=== PATIENT | male | born 1945 | race Caucasian/White ===

== ENCOUNTER 2025-02-23 11:51 | Observation (INO) ==
[2025-02-23] MEDS: SODIUM CHLORIDE 0.9% 500 ML IV SCH (12:19)
--- NOTE | 2025-02-23 12:33 | XRay Report ---
XR chest 1V portable CLINICAL HISTORY: weakness COMPARISON STUDY: None FINDINGS: Heart size and pulmonary vasculature are normal. No consolidation or pleural effusion. No p neumothorax. IMPRESSION: No acute findings. ACT 112: Negative or not required by law. Electronically signed by: Davion Payne M.D. 02/23/2025 12:31 PM
[2025-02-23 12:40] LABS: Alanine Aminotransferase 13 U/L (7-52); Albumin Globulin Ratio 1.3 (0.9-2); Alkaline Phosphatase 32 U/L (34-104); Anion Gap 8 (3-11); Bilirubin,Total 1.0 mg/dl (0.2-1.0); Blood Urea Nitrogen 36 mg/dl (6-23); Calcium 9.4 mg/dl (8.6-10.3); Carbon Dioxide 30 mmol/L (21-32); Chloride 102 mmol/L (98-107); Globulin 3.0 gm/dl (2.5-4.0); Glucose 119 mg/dl (70-99(Fasting)); Magnesium 2.1 mg/dl (1.7-2.4); Potassium 3.8 mmol/L (3.5-5.1); Sodium 140 mmol/L (136-145); Total Protein 6.8 gm/dl (6.0-8.3)
[2025-02-23] MEDS: SODIUM CHLORIDE 0.9% 500 ML IV ONE (12:40)
[2025-02-23 12:54] LABS: Hematocrit (blood only) 32.9 % (42.0-52.0); Hemoglobin 10.3 g/dl (14.0-18.0); Mean Corpuscular Hemoglobin 20.9 pg (25.0-34.0); Mean Corpuscular Volume 66.7 fL (80.0-100.0); Platelet Count 151 K/uL (130-400); RDW Standard Deviation 38.3 fL (36.4-46.3); Red Blood Count 4.93 M/uL (4.70-6.10); White Blood Count 7.91 K/ul (4.8-10.8)
[2025-02-23 12:55] LABS: Immature Granulocytes # (auto) 0.04 K/uL (0.01-0.20); Immature Granulocytes % (auto) 0.5 %; Microcytosis Present; Ovalocytes 1+; Polychromasia 1+; Target Cells 1+; Thyroid Stimulating Hormone 2.703 uIu/ml (0.300-4.500)
--- NOTE | 2025-02-23 13:04 | Emergency Department Note ---
Impression & Plan Hypotension, Syncope, Dysrhythmia, Anemia ED Provider Note NAME: TK SR AGE: 79 SEX: M : 1945 ARRIVES VIA: Ambulance INFORMANT: [Patient][family] ED PROVIDER(S): [Tai Arana MD] CHIEF COMPLAINT: Syncope HISTORY OF PRESENT ILLNESS: Patient is a 79-year-old male who is visiting from [place]. He is here to watch his granddaughters cross-country race. The patient states he did not have much sleep last night, he did not have much to eat or drink today. He was at the event today and, while standing and watching the end of the race, began to feel dizzy and lightheaded. The patient states that he apparently had a brief syncopal spell as he was helped up by bystanders. He cannot recall having chest pain or dyspnea. He did feel a bit lightheaded though. The patient has no known rhythm issues. He does have a somewhat dilated proximal aorta although, for now, the doctors are just watching. He does take medication for blood pressure and took his typical medications for the day. He is not on any blood thinning agents other than a baby aspirin. PMHx/PSHx/Social Hx: See Below PHYSICAL EXAM: GENERAL: Patient is in no acute distress. HEENT: No acute trauma, normocephalic atraumatic, mucous membranes moist, no nasal congestion. NECK: No stridor, no adenopathy, no meningismus, trachea is midline. LUNGS: Clear to auscultation bilaterally, no wheeze, no rhonchi, breath sounds equal. HEART: Irregular rhythm with a normal rate. No obvious murmur. ABDOMEN: Soft, nontender, no peritonitis. EXTREMITIES: No cyanosis, full range of motion of all the joints without pain or difficulty. NEUROLOGIC: Oriented x 3, no acute motor or sensory deficits, no focal weakness. SKIN: No jaundice, no diaphoresis. DIFFERENTIAL DIAGNOSIS: Dysrhythmia, anemia, electrolyte imbalance, dehydration, [place], among others. EMERGENCY DEPARTMENT PROCEDURES: MEDICAL DECISION MAKING: There is no leukocytosis. The patient is anemic with a hemoglobin of 10, I have no old values to use for comparison. A rectal exam was performed, the stool was heme-negative. There was a normal platelet count. There was an elevation to the creatinine at 1.72, no old values available for comparison. No electrolyte abnormality in need of emergent correction. No concerning liver enzyme elevation. Patient appeared to be in a euthyroid state. Lyme disease testing was negative. ECG showed a sinus rhythm with a first-degree AV block and multiple PACs and PVCs. Cardiac enzyme testing x 1 was not consistent with acute cardiac injury. Chest x-ray did not show pneumonia or CHF. No significant cardiomegaly. Patient did present somewhat hypotensive. He did receive a liter of IV saline with improvement of his blood pressure. The patient is in need of a hospital stay and further monitoring. He has frequent PACs and PVCs and has shown significant pauses on the equipment monitor phototypesetting. Certainly, this may have contributed to his syncopal spell. I did speak with cardiology, there was no finding on monitoring thus far to indicate the need for emergent intervention/pacemaker placement. I did speak with the patient and family, they understand the need for a hospital stay and further monitoring/workup. I did speak with case management, the on-call hospitalist was consulted. Prior/Outside records/notes reviewed: Today's EMS notes describing his presentation and transport to the hospital. ECG per my interpretation: Indication was syncope. The ECG shows a sinus bradycardia with a first-degree AV block and some PVCs. LVH is present. The rate was 58. There was no ST elevation. QTc was 404. Continuous Cardiac Monitoring per my interpretation: An order was placed for continuous cardiac monitoring. The monitor shows a rate of 91 with sinus rhythm with a first-degree AV block and PACs/PVCs.. Imaging/x-ray results per my interpretation: Chest x-ray did not show mediastinal widening, pneumonia or pneumothorax. Chronic Medical/Social conditions affecting care: Advanced age. Care/Management discussed with: Case management, the on-call hospitalist. Cardiology-Dr. Brandon. Level of care consideration(s): After review of the information above and other included data: --I believe the patient requires escalation of care to admission DISPOSITION: Admission Past Med/Surg History Problem List (Updated 02/23/25 @ 14:37 by Tai Arana MD) Anemia (Acute) Dysrhythmia (Acute) Syncope (Acute) Hypotension (Acute) Medical History Hypertension Social History Smoking Status: Current some day smoker Tobacco Type: Cigarettes Preferred Language: Yoruba Feels Safe at Home: Yes Home Meds Home Medications Medication Instructions Recorded Confirmed amlodipine 10 mg tablet 10 mg PO DAILY 02/23/25 02/23/25 aspirin 81 mg tablet,delayed 81 mg PO DAILY 02/23/25 02/23/25 release atorvastatin 20 mg tablet 20 mg PO DAILY 02/23/25 02/23/25 hydrochlorothiazide 12.5 mg tablet 12.5 mg PO DAILY 02/23/25 02/23/25 isosorbide mononitrate 30 mg 30 mg PO DAILY 02/23/25 02/23/25 tablet,extended release 24 hr olmesartan 40 mg tablet 40 mg PO DAILY 02/23/25 02/23/25 Results & Data (ED) Vital Signs Vital Signs - 24 hr 02/23/25 12:04 02/23/25 14:00 Temperature 36.5 C Temperature Source Oral Pulse Rate 91 H Pulse Rate [Finger] 72 Respiratory Rate 18 20 Blood Pressure 94/64 L Blood Pressure [Right Arm] 114/75 Blood Pressure Mean 74 Blood Pressure Mean [Right Arm] 88 Pulse Oximetry 95 97 Oxygen Delivery Method Room Air Room Air Sepsis Recent Fever Within 48 Hours No Sepsis New/Unexplained Change in Mental Status No Sepsis Action Taken by Nursing No Action Required Home Medications Current Medication List: was personally reviewed by me Laboratory Data Attestation: I reviewed the patient's lab results. 02/23/25 12:09 02/23/25 12:09 Lab Results 02/23/25 Range/Units 12:09 WBC 7.91 (4.8-10.8) K/ul RBC 4.93 (4.70-6.10) M/uL Hgb 10.3 L (14.0-18.0) g/dl Hct 32.9 L (42.0-52.0) % MCV 66.7 L (80.0-100.0) fL MCH 20.9 L (25.0-34.0) pg MCHC 31.3 L (32.0-36.0) g/dL RDW Std Deviation 38.3 (36.4-46.3) fL RDW Coeff of Meena 16.4 H (11.5-14.5) % Plt Count 151 (130-400) K/uL Immature Gran % (Auto) 0.5 % Neut % (Auto) 68.6 % Lymph % (Auto) 20.7 % Spencer % (Auto) 8.2 % Eos % (Auto) 1.6 % Baso % (Auto) 0.4 % Neut # (Auto) 5.42 (1.40-6.50) K/uL Lymph # (Auto) 1.64 (1.20-3.40) K/uL Spencer # (Auto) 0.65 H (0.11-0.59) K/uL Eos # (Auto) 0.13 (0.00-0.50) K/uL Baso # (Auto) 0.03 (0.00-0.20) K/uL Immature Gran # (Auto) 0.04 (0.01-0.20) K/uL Polychromasia 1+ Microcytosis Present Target Cells 1+ Ovalocytes 1+ Sodium 140 (136-145) mmol/L Potassium 3.8 (3.5-5.1) mmol/L Chloride 102 (98-107) mmol/L Carbon Dioxide 30 (21-32) mmol/L Anion Gap 8 (3-11) BUN 36 H (6-23) mg/dl Creatinine 1.72 H (0.6-1.4) mg/dl Est Cr Clr Drug Dosing Not Reportable eGFR 40.18 BUN/Creatinine Ratio 20.9 H (10-20) Glucose 119 H (70-99(Fasting)) mg/dl Calcium 9.4 (8.6-10.3) mg/dl Magnesium 2.1 (1.7-2.4) mg/dl Total Bilirubin 1.0 (0.2-1.0) mg/dl AST 18 (13-39) U/L ALT 13 (7-52) U/L Alkaline Phosphatase 32 L (34-104) U/L Troponin I High Sens 9.4 (0-20) pg/ml Total Protein 6.8 (6.0-8.3) gm/dl Albumin 3.8 (3.4-5.0) gm/dl Globulin 3.0 (2.5-4.0) gm/dl Albumin/Globulin Ratio 1.3 (0.9-2) TSH 2.703 (0.300-4.500) uIu/ml Lyme Disease Screen Negative (Negative) Administered Medications Discontinued Medications Sodium Chloride (Nss) 500 mls @ 999 mls/hr IV .Q31M VIELKA Stop: 02/23/25 12:30 Last Infusion: 02/23/25 12:57 Dose: Infused Documented By: Admin: 02/23/25 12:19 Dose: 999 mls/hr Documented By: JASSON Sodium Chloride (Nss) 500 mls @ 999 mls/hr IV .Q31M ONE Stop: 02/23/25 12:50 Last Infusion: 02/23/25 13:20 Dose: Infused Documented By: Admin: 02/23/25 12:40 Dose: 999 mls/hr Documented By: JASSON Imaging Data Radiologist's Impression: Chest X-Ray 02/23/25 11:57 XR chest 1V portable CLINICAL HISTORY: weakness COMPARISON STUDY: None FINDINGS: Heart size and pulmonary vasculature are normal. No consolidation or pleural effusion. No pneumothorax. IMPRESSION: No acute findings. ACT 112: Negative or not required by law. Electronically signed by: Davion Payne M.D. 02/23/2025 12:31 PM Discharge Plan Visit Data Chief Complaint: Syncope (Near Syncope) ED Provider: Tai Arana Discharge Problem: Hypotension, Syncope, Dysrhythmia, Anemia Patient Disposition: Admitted As Inpatient Condition: Fair Forms Stand Alone Forms: [facility] [employer] Prescriptions Prescriptions: No Action atorvastatin 20 mg tablet 20 mg PO DAILY isosorbide mononitrate 30 mg tablet extended release 24 hr 30 mg PO DAILY amlodipine 10 mg tablet 10 mg PO DAILY olmesartan 40 mg tablet 40 mg PO DAILY hydrochlorothiazide 12.5 mg tablet 12.5 mg PO DAILY aspirin [Aspir-81] 81 mg Tablet,Delayed Release (Dr/Ec) 81 mg PO DAILY Referrals Referrals: PCP,NO [Primary Care Provider] - Discharge Problem: Hypotension Qualifiers: Hypotension type: unspecified hypotension type Qualified Code(s): I95.9 - Hypotension, unspecified Syncope Qualifiers: Syncope type: unspecified Qualified Code(s): R55 - Syncope and collapse Dysrhythmia Qualifiers: Arrhythmia type: unspecified cardiac arrhythmia Qualified Code(s): I49.9 - Cardiac arrhythmia, unspecified Anemia Qualifiers: Anemia type: unspecified type Qualified Code(s): D64.9 - Anemia, unspecified
[2025-02-23 14:49] LABS: Appearance Urine Clear (Clear); Bacteria Urine Automated None Seen (None Seen); Cast Urine Automated 0-2 /lpf (0-2); Epithelial Cell Urine Auto 0-2 /hpf (0-2); Glucose Urine UA Negative (Negative); RBC Urine Automated 0-2 /hpf (0-2)
--- NOTE | 2025-02-23 14:55 | History & Physical Report ---
Date of Service February 23, 2025 Assessment & Plan (1) Syncope: (2) Hypotension: (3) Dysrhythmia: (4) Anemia: Plan 79 yrs male presents with a syncope spell with hypotension in EDwith a PMH of HTN, HLD, Aortic aneurysm and is getting admitted for heart monitoring and further evaluation. #Syncope/Hypotension/ MALA: - Possible dehydration and lack of sleep and improper eating leading to the syncope and hypotension with MALA. - Cr- 1.72, BUN-36, because of possible dehydration. - Will stop HCTZ, Olmesartan, isosorbide mononitrate because of hypotension but continue amlodipine - Will consider Echocardiogram if EKG suggests atrial fibrillation to r/o possible structural heart disease, valvular disease. - PMH of aortic aneurysm but clinical presentation suggesting dehydration. - Continue iv maintenance fluid. -Plan for D/c tomorrow. # Dysrthmia: -Ekg findings showing sinus bradycardia with a first-degree AV block and some PVCs. LVH is present. The rate was 58. - No H/o Afib before and never been on anticoagulants before. - Will work up on possible syncope d/t dehydration. -Will monitor his telemetry readings till tomorrow. VTE prophylaxis: Lovenox 40mg sq 24hrly. Admission and Anticipated Discharge Date Admission Date: I personally examined the patient and verified all lala points of history and exam, discussed case, and agree with decision making with Dr Cannon [facility] [place] [facility] today. Got up early this morningdid not really get much of anything to eat or drink, had some co ffee on the way, did take his medicines. Was running around the [place] following her race (incidentally he notes she had a ID)after the race one of his friends had a son running and the boys race later. Around this time he started to feel very dizzy and lightheaded and faint. [place] very hot. Grabbed a hold of something to try to steady himself, and then when outit sounds like he lost consciousness briefly but he is not entirely sure. Woke up, EMS brought him to the ER. Now he feels fine. Vitals noted, in general he is awake and alert pleasant no distress. HEENT normocephalic atraumatic mucous membranes moist. Breathing unlabored no accessory muscle use good effort. Skin without rashes pallor or icterus. Sinus rhythm on the monitor whenever I am in the room with him with rates between about 65 and 75occasional ectopy. EKG to me appears with sinus with first- degree AV blockthe 1 EKG that looks the most bradycardic also has essentially what amounts to atrial bigeminy slowing his overall rate between [place] beats. He also has an EKG with first-degree AV block with a PVC. No ischemic changes. Syncopealmost certainly dehydration and medication effect. Creatinine of 1.7 either reflects an MALA, or in discussion with him it sounds like he might have a degree of CKDuncertain stage. That said, very little to eat, only coffee to drink, running or going around a cross-country course on a reasonably hot day, having taken amlodipine, hydrochlorothiazide, isosorbide, and olmesartan all in that context certainly makes this fit the most with a dehydration meets medication side effect syncope. He looks and feels well. Hydrate through the night. Walk with him in the morningas long as he is doing well, anticipate home tomorrow. Elevated creatinineunclear if this is an MALA or CKD or both. Follow-up creatinine in the morning. With no baseline to compare to, as long as he feels well, if his creatinine is basically the same or better I would anticipate him being able to go home Abnormal EKGI do not think this has anything to do with the cause of his syncope. The bradycardia and ectopy could have been a degree of irritability from the dehydration and it may be a degree of vagalbut overall to me it does not appear that his rates or rhythms had anything to do with his syncopeespecially given that he was not having symptoms when the EKGs were done in the ER. Otherwise as above History of Present Illness Chief Complaint: Brief syncopal spell with dizziness after the episode. Reports feeling better on dizziness but still feels oozy. Primary Care Provider: NO PCP Patient is a 79-year-old male who presented with a syncopal spell after travelling [address] from [place] to watch his granddaughters cross-country race. Patient reports he woke up at 4 in the morning and only ate a apple pie and a coffee and didn't feel very good because of feeling sleepy and hungry, At the stadium he was walking a lot and began to feel dizzy and lightheaded but doesn't remember loss of consciousness. The patient states that he apparently had a brief syncopal spell as he was helped up by other people to stand. Reports feeling dizzy and scorching heat from the sun afterwards. He mentions he has a aortic aneurysm which has recently increased in size but didn't need any intervention done as per report specialist. He had his work up done at last october. He takes his hypertensive medication, statin and aspirin. No H/o abnormal body movement, chest pain, palpitations. Allergies Allergy/AdvReac Type Severity Reaction Status Date / Time No Known Allergies Allergy Unverified 02/23/25 15:00 Home Medications Medication Instructions Recorded Confirmed Type amlodipine 10 mg tablet 10 mg PO DAILY 02/23/25 02/23/25 History aspirin 81 mg tablet,delayed 81 mg PO DAILY 02/23/25 02/23/25 History release atorvastatin 20 mg tablet 20 mg PO QPM 02/23/25 02/23/25 History hydrochlorothiazide 12.5 mg tablet 12.5 mg PO DAILY 02/23/25 02/23/25 History isosorbide mononitrate 30 mg 30 mg PO DAILY 02/23/25 02/23/25 History tablet,extended release 24 hr olmesartan 40 mg tablet 40 mg PO DAILY 02/23/25 02/23/25 History vitamins A,C,Y-hzfw-kjxsrw 2,148 1 tab PO DAILY 02/23/25 02/23/25 History mcg-113 mg-45 mg-17.4 mg tablet (PreserVision AREDS) Past Med/Surg History Problem List (Updated 02/23/25 @ 14:37 by Tai Arana MD) Anemia (Acute) Dysrhythmia (Acute) Syncope (Acute) Hypotension (Acute) Medical History Hypertension Social History Smoking Status: Current some day smoker Tobacco Type: Cigarettes Preferred Language: Bermudian Feels Safe at Home: Yes Review of Systems Review of Systems: As per HPI. Physical Exam Physical Exam: GENERAL: Patient is in no acute distress. HEENT: No acute trauma, normocephalic atraumatic, mucous membranes moist, no nasal congestion. NECK: No stridor, no adenopathy, no meningismus, trachea is midline. LUNGS: Clear to auscultation bilaterally, no wheeze, no rhonchi, breath sounds equal. HEART: Irregular rhythm with a normal rate. No obvious murmur. ABDOMEN: Soft, nontender, no peritonitis. EXTREMITIES: No cyanosis, full range of motion of all the joints without pain or difficulty. NEUROLOGIC: Oriented x 3, no acute motor or sensory deficits, no focal weakness. SKIN: No jaundice, no diaphoresis. Results & Data Results & Data Vital Signs (Past 12 Hours) Vital Signs Temp Pulse Pulse Resp BP BP Pulse Ox 02/23/25 14:00 72 20 114/75 97 02/23/25 12:04 36.5 C 91 H 18 94/64 L 95 O2 Del Method 02/23/25 14:00 Room Air 02/23/25 12:04 Room Air Resident Activity Tracking Resident Involvement: Resident Care Provided Care Provided: Adult Hospital Medicine (1) Syncope Syncope type: unspecified Qualified Code(s): R55 - Syncope and collapse (2) Hypotension Hypotension type: unspecified hypotension type Qualified Code(s): I95.9 - Hypotension, unspecified (3) Dysrhythmia Arrhythmia type: unspecified cardiac arrhythmia Qualified Code(s): I49.9 - Cardiac arrhythmia, unspecified (4) Anemia Anemia type: unspecified type Qualified Code(s): D64.9 - Anemia, unspecified
[2025-02-23] MEDS ORDERED: ACETAMINOPHEN 325 MG TAB PO PRN (16:09)
[2025-02-23] MEDS ORDERED: ALUMINUM/MAGNESIUM SUSP 30 ML UDC PO PRN (16:09)
[2025-02-23] MEDS ORDERED: ONDANSETRON INJ 2 MG/ML 2 ML VIAL IV PRN (16:09)
[2025-02-23] MEDS ORDERED: MELATONIN 3 MG TAB PO PRN (16:09)
[2025-02-23] MEDS ORDERED: MAGNESIUM HYDROXIDE SUSP 30 ML UDC PO PRN (16:09)
[2025-02-23] MEDS: LACTATED RINGER'S 1,000 ML IV SCH (17:08)
--- NOTE | 2025-02-23 17:44 | Billing Data ---
Date of Service February 23, 2025 Coding Level of Care Code 64315 INT INP/OBS CARE
[2025-02-23] MEDS: ENOXAPARIN INJ 40 MG/0.4 ML SYR SQ SCH (18:30)
[2025-02-23] MEDS: ATORVASTATIN 20 MG TAB PO SCH (21:51)
--- NOTE | 2025-02-24 06:20 | Electrocardiogram Report ---
Test Reason : Blood Pressure : */* mmHG Vent. Rate : 58 BPM Atrial Rate : 58 BPM P-R Int : 272 ms QRS Dur : 94 ms QT Int : 412 ms P-R-T Axes : * -13 31 degrees QTcB Int : 404 ms Sinus bradycardia with 1st degree A-V block with occasional Premature ventricular complexes Minimal voltage criteria for LVH, may be normal variant ( R in aVL ) Borderline ECG No previous ECGs available Confirmed by Josue Brandon ([id number]) on 02/24/2025 6:20:27 AM Referred By: REFERRED SELF Confirmed By: Josue Brandon
--- NOTE | 2025-02-24 06:22 | Electrocardiogram Report ---
Test Reason : Blood Pressure : */* mmHG Vent. Rate : 62 BPM Atrial Rate : * BPM P-R Int : * ms QRS Dur : 78 ms QT Int : 414 ms P-R-T Axes : * -14 -31 degrees QTcB Int : 420 ms Sinus rhythm with 1st degree A-V block Premature supraventricular complexes Premature ventricular complexes Abnormal ECG When compared with ECG of 23-Feb-2025 12:00, Premature supraventricular complexes are now Present Confirmed by Josue Brandon ([id number]) on 02/24/2025 6:21:33 AM Referred By: REFERRED SELF Confirmed By: Josue Brandon
--- NOTE | 2025-02-24 06:22 | Electrocardiogram Report ---
Test Reason : Blood Pressure : */* mmHG Vent. Rate : 71 BPM Atrial Rate : * BPM P-R Int : * ms QRS Dur : 78 ms QT Int : 420 ms P-R-T Axes : * -14 -2 degrees QTcB Int : 456 ms Sinus rhythm with 1st degree A-V block with frequent Premature supraventricular complexes When compared with ECG of 23-Feb-2025 12:54, Premature ventricular complexes are no longer Present Confirmed by Josue Brandon ([id number]) on 02/24/2025 6:22:21 AM Referred By: REFERRED SELF Confirmed By: Josue Brandon
[2025-02-24 06:35] LABS: Anion Gap 6 (3-11); Blood Urea Nitrogen 27 mg/dl (6-23); Calcium 8.9 mg/dl (8.6-10.3); Carbon Dioxide 29 mmol/L (21-32); Chloride 107 mmol/L (98-107); Glucose 94 mg/dl (70-99(Fasting)); Potassium 4.0 mmol/L (3.5-5.1); Sodium 142 mmol/L (136-145)
[2025-02-24 06:36] LABS: Hematocrit (blood only) 29.7 % (42.0-52.0); Hemoglobin 9.8 g/dl (14.0-18.0); Mean Corpuscular Hemoglobin 21.9 pg (25.0-34.0); Mean Corpuscular Volume 66.4 fL (80.0-100.0); Platelet Count 138 K/uL (130-400); RDW Standard Deviation 37.6 fL (36.4-46.3); Red Blood Count 4.47 M/uL (4.70-6.10); White Blood Count 7.68 K/ul (4.8-10.8)
[2025-02-24 06:39] LABS: Immature Granulocytes # (auto) 0.03 K/uL (0.01-0.20); Immature Granulocytes % (auto) 0.4 %; Microcytosis Present; Ovalocytes 1+; Polychromasia 1+; Target Cells 1+
[2025-02-24] MEDS: ASPIRIN 81 MG ECTAB PO SCH (08:46)
--- NOTE | 2025-02-24 09:27 | Communication Note ---
Date of Service: February 24, 2025 By CMS guidelines, a determination that the admission or continued stay is not medically necessary has been made by a member of the UR committee and gretchen yip for this hospital stay, therefore a Code 44 will be completed and the Inpatient admission will be changed to outpatient.
--- NOTE | 2025-02-24 10:13 | Communication Note ---
Date of Service: February 24, 2025 By CMS guidelines, a determination that the admission or continued stay is not medically necessary has been made by a member of the UR committee and a physician for this hospital stay, therefore a Code 44 will be completed and the Inpatient admission will be changed to outpatient. Edmundo Gee MD Member, Utilization Review Committee
--- NOTE | 2025-02-24 16:50 | Billing Data ---
Date of Service February 24, 2025 Coding Level of Care Code 54909 INP/OBS DISCH >30 MIN
--- NOTE | 2025-02-24 16:50 | Discharge Summary ---
Discharge Summary Date of Service February 24, 2025 Principal Dx & Hospital Course #1 = Principal Diagnosis (1) Syncope: (2) Hypotension: (3) Dysrhythmia: (4) Anemia: Plan 79 yrs male presents with a syncope spell with hypotension in EDwith a PMH of HTN, HLD, Aortic aneurysm and is getting admitted to monitor his heart rhythm and further evaluation. #Syncope/Hypotension/ MALA: - Did not eat any food, only drank coffee, took all of his medications, and then was running around a cross-country course following his granddaughter (who did set a ID in the 6K)before having very characteristic symptoms of orthostatic syncope (prodrome of dizziness and feeling hot followed by loss of consciousness). Creatinine was 1.7 on admission down to 1.3 today (baseline unknown) and his overall situation fit with dehydration/orthostasis. Safe/stable for home. # Dysrthmia: -Ekg findings showing sinus bradycardia with a first-degree AV block and PAC and PVCs. LVH is present. - on monitor sinus with first-degree AV block normal rate and ectopy. No arrhythmias no significant bradycardia/pauses. In the end no true arrhythmia at playdefinitely nothing contributing to his syncope safe/stable for home. See discharge instructions Notes For Next Care Provider Medication Changes From Visit noneencouraged hydration Admission HPI Per Admitting Provider Patient is a 79-year-old male who presented with a syncopal spell after travelling [address] from [place] to watch [place] race. Patient reports he woke up at 4 in the morning and only ate a apple pie and a coffee and didn't feel very good because of feeling sleepy and hungry, At the stadium he was walking a lot and began to feel dizzy and lightheaded but doesn't remember loss of consciousness. The patient states that he apparently had a brief syncopal spell as he was helped up by other people to stand. Reports feeling dizzy and scorching heat from the sun afterwards. He mentions he has a aortic aneurysm which has recently increased in size but didn't need any intervention done as per gear setter. He had his work up done at last october. He takes his hypertensive medication, statin and aspirin. No H/o abnormal body movement, chest pain, palpitations. Discharge Exam in general he is awake alert oriented x 3 pleasant no acute distress. HEENT normocephalic atraumatic mucous membranes moist. Breathing unlabored no accessory muscle use good effort. We walk in the halls together walking an entire loop around the unit and he has no dyspnea no dizziness no symptoms whatsoever. Updated Medication List Medication Instructions Recorded Confirmed Type amlodipine 10 mg tablet 10 mg PO DAILY 02/23/25 02/23/25 History aspirin 81 mg tablet,delayed 81 mg PO DAILY 02/23/25 02/23/25 History release atorvastatin 20 mg tablet 20 mg PO QPM 02/23/25 02/23/25 History hydrochlorothiazide 12.5 mg tablet 12.5 mg PO DAILY 02/23/25 02/23/25 History isosorbide mononitrate 30 mg 30 mg PO DAILY 02/23/25 02/23/25 History tablet,extended release 24 hr olmesartan 40 mg tablet 40 mg PO DAILY 02/23/25 02/23/25 History vitamins A,C,J-iuzx-qjraek 2,148 1 tab PO DAILY 02/23/25 02/23/25 History mcg-113 mg-45 mg-17.4 mg tablet (PreserVision AREDS) Hospital Stay Data Consultations 02/23/25 13:59 ED Decision to Admit Stat 02/24/25 09:48 HIM [Consult Health Information Management] Routine Pending Results Patient Have Any Pending Studies at Discharge: No Discharge Instructions Given to Patient (Per Discharging Provider) syncope (fainting) - your entire story (from when you got up in the morning to whenever you passed outand especially having not had much of anything to drink, running around the cross-country course, and then starting to feel dizzy/feeling so hot right before you passed out) all fits perfectly with what we see whenever somebody has a fainting spell due to dehydration. Of course, taking your regular medications accentuated the drop in blood pressure, but it really appears that the main problem was "running dry" - everything is looking on trackand it definitely appears safe to get you home as we discussed, most people as we get older start to lose the hormones that make us feel thirsty; in my very strange job that means that I see a lot of people in their 70s and 80s, and with consequences of being dehydrated. Like we joked, you cannot really live on sawdust and ambient moistureand while I do not know your medical background (if there was some reason you needed to be on a fluid restriction your family doctor or gear setter would knowbut most people this is not the case) it would be reasonable to track your fluid intake with a goal of 60 ounces a day, and then another 5-10 ounces per hour if you are exercising or out in the heat (these are totally generic numbers, but whenever I am able to get a good story on people often they are only drinking maybe 30-40 ounces so even if 60 is not perfect, it is better, and for most people often enough to feel better) as we discussed, you do not have to stop drinking coffee, but since for a lot of us the caffeine level and coffee is enough to act like a bit of a diuretic, the coffee just does not count towards the 60 ounce goal (i.e. if you drink 10 ounces of coffee you still have to drink 60 ounces of "something else") - Your EKG initially created thought of could heart rhythm issues have caused you to faintbut your history (what you were feeling leading up to things) did not fit with what we see with rhythm related fainting, and your EKG and rhythms really just showed essentially "normally abnormal" findingsa first degree AV block, and frequent atrial ectopy (both fairly common and usually fairly harmless findings)given they have a gear setter back home, we will try to get your EKGs to him to look at, but also on cardiac monitoring, you did not show any worrisome degrees of slow heart rate (no significant bradycardia) and no true arrhythmias. - Follow-up with your family doctor this coming week. There are a few loose ends but they are mostly loose ends because I do not know where you normally run. The first is your creatininethis is a marker that we typically look at for kidney functionyesterday it was mildly elevated at 1.7, and today has improved to 1.3. This certainly fits with being dehydrated, and 1.3 might be "your normal"if it is not, your family doc will want to continue to follow the lab work until you get back to your normal; at the same time if you are back to normal then there would be no need for repeat testing until you are due anyway. Similarly, your hemoglobin (the main number we look at for red blood cells) is mildly low at about 10, with slightly small red blood cells (MCV of about 66.5)this typically implies some degree of iron deficiency anemia, which is generally always chronic. I suspect your family doctor is already on top of all of thisgenerically speaking when we see somebody with iron deficiency we usually like to make sure that they are up-to-date on things like a colonoscopy (just to make sure nothing would be slowly oozing blood causing the iron deficiency) and if there is not any because they are/if the colonoscopy has been done reasonably recently, then usually we just supplement iron and make sure that counts improve. With this in mind, it might be stuff that your family doctor is already on top of, or they may want to repeat blood counts and grab iron levels in the near future/etc. - It was great meeting you, but I hope your next trip to [place] does [facility] Total Time Total Time Spent Total Time Spent (In Minutes): >30
== END 2025-02-24 10:13 | disposition home or self-care (01) | DRG 641 ==
LOC: ED 11:51 → EDINP 16:49 → SUATTDRO 16:49 → INTOOBSV 16:49 → EDINP 19:16 → 2N 21:50